=== PATIENT | male | born 1995 | race Caucasian/White ===

== ENCOUNTER 2017-07-18 21:57 | Emergency (ER) | payer OTHER ==
[~2017-07-18] VITALS: Ht 175.3 cm; Wt 68.5 kg
[~2017-07-18 21:57] MED LIST: CLR10 PO; FLUT0.0529 NAE; OPTOPS OPB; RIZA10TA18 PO
[2017-07-18 22:05] VITALS: TEMP 36.8; Ht 175.3 cm; Wt 68.5 kg
--- NOTE | 2017-07-18 22:32 | EMERGENCY ROOM VISIT NOTE ---
ED Visit Note First contact with patient: 22:08 CHIEF COMPLAINT: knee pain HISTORY OF PRESENT ILLNESS: This 22-year-old male patient presents to the emergency department ambulatory after sustaining an injury to the left knee this evening while playing basketball. The patient states that he landed down on his left knee and felt a popping sensation in the knee. The patient denies any other injuries besides their knee. The patient reports swelling. There is pain along the inside of the knee which is worse with walking. They rate the pain as sharp and 7/10. The patient states they are able to walk on it, however it is very painful. No numbness or tingling. No previous injuries to this knee. No ankle, foot or hip pain. REVIEW OF SYSTEMS: A 6 system review of systems was completed with positives and pertinent negatives listed in the HPI. ALLERGIES: Amoxicillin MEDICATIONS: See medication list PMH: Migraines, seasonal allergies SOCIAL HISTORY: Patient lives locally with family. Non-smoker. PHYSICAL EXAM: Vital Signs: Reviewed Nurse's notes, vital signs stable. GENERAL : This is a 22-year-old male, no acute distress, but appears in pain, well- developed, well-nourished. MENTAL STATUS: Alert, oriented to person place and time, and cooperative. MUSCULOSKELETAL: The left knee is not significantly swollen. There is no ecchymosis. There is no obvious joint effusion present. The patient is tender along the medial inferior aspect of the knee. The patella does not subluxate. Flexion is full, patient is unable to fully extend secondary to discomfort. Strength of the quads and hamstrings is 5/5. Bartolome' s is negative. Spenser's and Anterior Drawer tests are negative. There is no laxity with varus and valgus stressing. The foot and toes are warm and well- perfused. Dorsalis pedis pulse 2+. Sensation to pain and light touch is intact. Capillary refill less than 2 seconds. RADIOGRAPHIC FINDINGS: L KNEE 3 VIEWS CLINICAL HISTORY: Left knee pain. Trauma. COMPARISON: None. DISCUSSION: No fractures or dislocations are visualized. There is a suprapatellar joint effusion. IMPRESSION: Joint effusion. No fractures identified. EMERGENCY DEPARTMENT COURSE: I examined the patient. X-rays of the left knee were reviewed by myself and read by radiology and reveal a joint effusion but no acute fractures. The patient was placed in a knee immobilizer under my direction and the position was satisfactory. The patient was instructed on the use of crutches. He was given information for orthopedic follow-up. Conservative measures were discussed with the patient. He verbalized understanding of my assessment and treatment plan. The patient was discharged home in good condition. Blood Pressure Screening: Patient was found to have a slightly elevated blood pressure due to circumstances. I do not believe that the patient requires hypertension monitoring. Medication reconciliation: I attest that I have personally reviewed the patient 's current medication list. DIAGNOSIS: Left knee injury Problem List Medical Problems: (1) Closed head injury Status: Resolved (2) Closed head injury Status: Resolved (3) Closed head injury Status: Resolved (4) Post concussion syndrome Status: Resolved Current/Historical Medications Scheduled PRN Cromolyn Sodium (Ophth) (Opticrom Oph), 1-2 DROPS OPB QID PRN for Itching or allergies Fluticasone Propionate (Nasal) (Flonase), 2 SPRAYS BARBARA DAILY PRN for Allergies Loratadine (Claritin), 10 MG PO DAILY PRN for Allergies Rizatriptan Benzoate (Maxalt), 10 MG PO UD PRN for Headache Allergies Coded Allergies: Amoxicillin (Unverified Allergy, Unknown, ., 09/23/13) Vital Signs Date Time Temp Pulse Resp B/P (MAP) Pulse Ox O2 Delivery O2 Flow Rate FiO2 07/18/17 23:38 74 18 138/73 98 Room Air 07/18/17 22:05 36.8 88 18 149/80 98 Room Air Departure Information Dispostion Home / Self-Care Condition GOOD Referrals No Doctor, Assigned (PCP) Gurwinder Hebert M.D. Patient Instructions My [facility] Additional Instructions You have been treated in the Emergency Department for Knee Pain. For pain control, you can use the following [id number] medicines (if >12 yo): - Regular strength (325mg/tab) Tylenol (acetaminophen) 2 tabs every 4-6 hours as needed. Do not exceed 12 tablets in a 24 hour period. Avoid taking more than 4 grams (4000 mg) of Tylenol per day. This includes any other sources of acetaminophen you may take on a regular basis. - Regular strength (200 mg/tab) Advil (ibuprofen) 1-2 tabs every 4-6 hours as needed. Do not exceed a dose of 3200 mg per day. If this is a recent injury (<24 hrs), ice can be applied to the area of pain for the first 3 days to help decrease pain and inflammation. Ice massages can be performed by freezing water in a paper cup, peeling back the cup to expose the ice and then massaging over the affected area. You have been provided the number for an Orthopaedic Surgeon. You should call this number as soon as possible to establish a follow-up visit from today's Emergency Department visit. Use the crutches you have been provided to keep ALL weight off of the knee until weight bearing is tolerable. Return to the Emergency Department if your current symptoms worsen despite treatment course outlined above.
--- NOTE | 2017-07-18 22:45 | DIAGNOSTIC IMAGING REPORT ---
L KNEE 3 VIEWS CLINICAL HISTORY: Left knee pain. Trauma. COMPARISON: None. DISCUSSION: No fractures or dislocations are visualized. There is a suprapatellar joint effusion. IMPRESSION: Joint effusion. No fractures identified. Electronically signed by: Zurdo Vyas M.D. 07/18/2017 10:43 PM Dictated Date/Time: 07/18/2017 10:43 PM
[2017-07-18 23:38] VITALS: BP 138/73; PULSE 74; O2SAT 98
== END 2017-07-18 23:44 | disposition home or self-care (01) ==
LOC: C.EDB 22:00 → C.EDD 23:44
DX: S89.92XA Unspecified injury of left lower leg, initial encounter (principal); X50.9XXA Other and unspecified overexertion or strenuous movements or postures, initial encounter; Z88.8 Allergy status to other drugs, medicaments and biological substances